=== PATIENT | female | born 1985 | race Caucasian/White ===

== ENCOUNTER → 2018-11-27 | Outpatient (REF) | payer BC ==
[2018-11-27 21:50] LABS: APPEARANCE, URINE CLEAR (CLEAR); BACTERIA, URINE AUTO 1+ (NEGATIVE); BILIRUBIN, URINE AUTO NEGATIVE (NEGATIVE); BLOOD, URINE BLOOD NEGATIVE (NEGATIVE); COLOR, URINE YELLOW (YELLOW); GLUCOSE, URINE (UA) AUTO NEGATIVE (NEGATIVE); KETONE, URINE AUTO NEGATIVE (NEGATIVE); LEUKOCYTE ESTERASE, URINE AUTO TRACE (NEGATIVE); MUCUS, URINE SMALL (NEGATIVE); NITRITE, URINE AUTO NEGATIVE (NEGATIVE); PROTEIN, URINE AUTO NEGATIVE (NEGATIVE); RBC, URINE AUTO 12 /HPF (0-3); SPECIFIC GRAVITY URINE AUTO 1.024 (1.002-1.035); SQUAMOUS EPITHELIAL CELL UR AU 1 /HPF (0-6); UROBILINOGEN, URINE AUTO 0.2 mg/dL (0.0-2.0); WBC, URINE AUTO 11 /HPF (0-3)
[2018-11-27 23:28] LABS: CHLAMYDIA DNA AMPLIFICATION NEGATIVE (NEGATIVE); GC DNA AMPLIFICATION NEGATIVE (NEGATIVE)
== END ==
LOC: M LAB REF 10:25
PROVIDERS: ATTEND Physician Assistant
DX: N39.0 Urinary tract infection, site not specified (principal)

== ENCOUNTER 2019-04-29 17:25 | Emergency (ER) | payer BC, SELFPAY ==
[~2019-04-29] VITALS: Ht 170.2 cm; Wt 83.5 kg
[2019-04-29 19:04] VITALS: BP 148/72
[2019-04-29] MEDS ORDERED: PERC5TAB12 PO (19:27)
[2019-04-29] MEDS ORDERED: PERCOCET 5MG/325MG TAB PO ONE (19:30)
--- NOTE | 2019-04-29 20:21 | REP ---
LEFT RIB SERIES: Four views left ribs performed. There is a nondisplaced fracture at the anterior aspect of the left 7th rib. No other rib fracture or bone lesion is seen. An accompanying view of the chest demonstrates no acute infiltrate, pneumothorax, or pleural effusion. The heart and mediastinum are unremarkable. IMPRESSION: Nondisplaced fracture anterior left 7th rib. Electronically Signed by Dg Tiwari MD 04/30/2019 08:47 A
== END 2019-04-29 19:36 | disposition home or self-care (01) ==
LOC: M ED 17:25
DX: S22.32XA Fracture of one rib, left side, initial encounter for closed fracture (principal); W00.0XXA Fall on same level due to ice and snow, initial encounter; Y92.9 Unspecified place or not applicable; Y93.9 Activity, unspecified; Z88.2 Allergy status to sulfonamides; F17.200 Nicotine dependence, unspecified, uncomplicated

== ENCOUNTER 2020-05-20 18:16 | Emergency (ER) | payer OTHER, SELFPAY ==
[~2020-05-20] VITALS: Ht 170.2 cm; Wt 93.5 kg
[~2020-05-20 18:16] MED LIST: PERC5TAB12 PO
[2020-05-20] MEDS ORDERED: TETRACAINE 0.5% OPHTH SOLN 4ML OS ONE (19:15)
[2020-05-20] MEDS ORDERED: FLUORESCEIN OPHTH 1 MG STRIP OS ONE (19:15)
--- NOTE | 2020-05-20 19:36 | REPVR ---
PROCEDURE INFORMATION: Exam: CT Maxillofacial Without Contrast Exam date and time: 05/20/2020 7:14 PM Age: 34 years old Clinical indication: Pain; Headache; Additional info: Trauma TECHNIQUE: Imaging protocol: Computed tomography images of the face without contrast. Radiation optimization: All CT scans at this facility use at least one of these dose optimization techniques: automated exposure control; mA and/or kV adjustment per patient size (includes targeted exams where dose is matched to clinical indication); or iterative reconstruction. COMPARISON: No relevant prior studies available. FINDINGS: Orbital cavity: Orbits are normal. Globes are unremarkable. Bones/joints: No acute fracture. Paranasal sinuses: Normal. No air-fluid levels. Soft tissues: Unremarkable. IMPRESSION: No acute findings. Electronically signed by: Mario Wolff On 05/20/2020 19:36:46 PM
--- NOTE | 2020-05-20 19:38 | REPVR ---
PROCEDURE INFORMATION: Exam: CT Cervical Spine Without Contrast Exam date and time: 05/20/2020 7:14 PM Age: 34 years old Clinical indication: Neck pain; Additional info: Trauma TECHNIQUE: Imaging protocol: Computed tomography images of the cervical spine without contrast. Radiation optimization: All CT scans at this facility use at least one of these dose optimization techniques: automated exposure control; mA and/or kV adjustment per patient size (includes targeted exams where dose is matched to clinical indication); or iterative reconstruction. COMPARISON: No relevant prior studies available. FINDINGS: Bones/joints: No acute fracture. Normal alignment. Discs/Spinal canal/Neural foramina: No significant disc protrusion. No severe spinal canal stenosis. No significant neural foraminal narrowing. Lungs: Lung apices are normal. Soft tissues: Unremarkable. IMPRESSION: No acute findings. Electronically signed by: Mario Wolff On 05/20/2020 19:39:15 PM
--- NOTE | 2020-05-20 19:40 | REPVR ---
PROCEDURE INFORMATION: Exam: CT Head Without Contrast Exam date and time: 05/20/2020 7:14 PM Age: 34 years old Clinical indication: Pain; Headache; Additional info: Trauma TECHNIQUE: Imaging protocol: Computed tomography of the head without contrast. Radiation optimization: All CT scans at this facility use at least one of these dose optimization techniques: automated exposure control; mA and/or kV adjustment per patient size (includes targeted exams where dose is matched to clinical indication); or iterative reconstruction. COMPARISON: No relevant prior studies available. FINDINGS: Brain: Normal. No hemorrhage. Unremarkable white matter. No mass effect. Cerebral ventricles: No ventriculomegaly. Bones/joints: Unremarkable. No acute fracture. Paranasal sinuses: Visualized sinuses are unremarkable. No fluid levels. Mastoid air cells: Visualized mastoid air cells are well aerated. Soft tissues: Unremarkable. IMPRESSION: No acute intracranial abnormality. Electronically signed by: Mario Wolff On 05/20/2020 19:40:43 PM
[2020-05-20] MEDS ORDERED: ACETAMINOPHEN 325 MG TAB PO ONE (20:30)
--- NOTE | 2020-05-20 20:31 | REPVR ---
PROCEDURE INFORMATION: Exam: XR Right Shoulder Exam date and time: 05/20/2020 8:06 PM Age: 34 years old Clinical indication: Pain; Shoulder; Right; Additional info: Right shoulder pain; S/P trauma TECHNIQUE: Imaging protocol: XR Right shoulder. Views: 2 or more views. COMPARISON: No relevant prior studies available. FINDINGS: Bones/joints: A small radiopaque linear density noted projecting in the acromial humeral interval on the internally rotated view of the shoulder. Subchondral lucencies noted in the humeral head. Soft tissues: Normal. IMPRESSION: Radiopaque linear density projecting in the right acromial humeral interval could represent a fracture fragment. The appearance is atypical for calcific tendinitis. Electronically signed by: Mary Mustafa On 05/20/2020 20:32:05 PM
[2020-05-20 21:30] VITALS: BP 134/86
== END 2020-05-20 22:15 | disposition home or self-care (01) ==
LOC: M ED 18:16
DX: S42.124A Nondisplaced fracture of acromial process, right shoulder, initial encounter for closed fracture (principal); S00.83XA Contusion of other part of head, initial encounter; Y07.03 Male partner, perpetrator of maltreatment and neglect; T74.11XA Adult physical abuse, confirmed, initial encounter; F43.10 Post-traumatic stress disorder, unspecified; F41.9 Anxiety disorder, unspecified; Y92.9 Unspecified place or not applicable; Y93.9 Activity, unspecified; Y99.9 Unspecified external cause status; Z88.2 Allergy status to sulfonamides; Z88.1 Allergy status to other antibiotic agents

== ENCOUNTER → 2020-06-30 | Outpatient (CLI) | payer OTHER ==
[~2020-06-30] MED LIST changes: +ISOVUE-300 61% 50ML VIAL As Ordered ONE; +LIDOCAINE 1% MDV 20ML VIAL As Ordered ONE; +PROHANCE 279.3MG/ML 5ML VIAL As Ordered ONE
--- NOTE | 2020-06-30 09:23 | REP ---
INDICATION: NONDISP FX OF BODY OF SCAPULA RT SHOULDER. COMPARISON: None TECHNIQUE: The procedure was performed by DELL Anne, under the direct supervision of Dr. Mata. The benefits and risks of the procedure were explained to the patient, and an informed consent was obtained. Directly prior to the start of the procedure, a formal time-out was completed in the procedure room. The right glenohumeral joint space was localized using fluoroscopic guidance. The skin was prepped and draped in a sterile fashion. Approximately 5 mL of 1% Lidocaine 10 mg/ml was used as a local anesthetic. Using fluoroscopic guidance, a #22 gauge spinal needle was inserted and advanced into the right glenohumeral joint space. Approximately 1 mL of Isovue 300 was injected to verify placement. Twelve mL of a solution containing 20 mL of sterile saline and 0.15 mL of ProHance was injected into the joint space. The needle was removed and the patient was taken to MRI for post procedural imaging. FINDINGS: The patient tolerated the procedure well and there were no immediate complications. IMPRESSION: MRI arthrogram injection under fluoroscopic guidance. 0.2 minutes of fluoroscopy time was utilized for this procedure. Some fluoroscopic images are performed with last image hold technology. These images require no additional radiation. <Electronically signed by Brianna Lagos > 06/30/20 0904 <Electronically signed by Guilherme Mata > 06/30/20 0919
--- NOTE | 2020-06-30 09:42 | REP ---
INDICATION: NONDISP FX OF BODY OF SCAPULA RT SHOULDER. COMPARISON: Comparison radiographs of the right shoulder from 20 May 2020.. TECHNIQUE: The injection procedure is performed and dictated separately. Pre and post intra-articular gadolinium enhanced saline injected imaging is acquired. Imaging planes include axial, oblique coronal, oblique sagittal and ABER projection images. T1 and T2-weighted scans are included with and without fat saturation. FINDINGS: Pre-injection imaging shows moderate osteoarthritic hypertrophy and some marrow edema on both sides of the acromioclavicular joint. There is a small quantity of joint fluid in the AC joint. The hypertrophy indents the superior margin of the musculotendinous junction of the supraspinatus. There is no evidence of occult fracture of the scapula or proximal humerus or distal clavicle. There is subcortical cyst formation in the superolateral humeral head which may correlate with impingement. There is heterogeneous signal intensity on pre-injection T1 weighted scans in the supraspinatus tendon consistent with advanced tendinosis. T2 weighted scans show intrasubstance T2 signal. No complete tear is seen on pre-injection imaging. Post injection imaging shows good filling and enhancement of the right glenohumeral articulation. There is no evidence of labral cartilage tear. There is intrasubstance contrast enhanced fluid in the distal insertion of the supraspinatus consistent with partial thickness distal supraspinatus cuff tearing. No complete tear is seen. There is fraying of the undersurface of the supraspinatus tendon. There is a linear low T1 low T2 signal intensity calcium deposit in the supraspinatus tendon which corresponds with the radiographic findings. This measures 8.5 mm in greatest length. No intra-articular loose body is appreciated. Biceps tendon is intact in appearance. Infraspinatus and subscapularis tendons are unremarkable. There is no evidence of anterior labral tear on abduction external rotation projection images. IMPRESSION: 1. AC joint osteoarthritic change with hypertrophy and marrow edema on either side of the AC joint. 2. 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 <Electronically signed by Guilherme Mata > 06/30/20 2021
== END ==
LOC: M RADPRO 06:56
PROVIDERS: ATTEND Physician Assistant
DX: S42.114A Nondisplaced fracture of body of scapula, right shoulder, initial encounter for closed fracture (principal)
CPT/HCPCS: 23350; 73223; 77002; A9576; Q9967